=== PATIENT | male | born 1960 | race Caucasian/White ===

== ENCOUNTER → 2018-02-13 | Outpatient (CLI) | payer BC ==
[~2018-02-13] MED LIST: BENICAR HCT 401 EACH PO; BUPROPION HCL150 M2 PO; FOLIC ACID0.4 MG PO; MOBIC15 MG PO; OMEPRAZOLE40 M1 PO
[2018-02-13 10:09] LABS: HEMOGLOBIN 13.4 G/DL (12.5-16.6); MCH 31.9 PG (29.0-34.0); MCHC 35.3 G/DL (30.0-36.0); MCV 90.5 FL (86-99); PLATELET COUNT 256 K/uL (156-360); RBC DIS.WIDTH-CV 12.6 % (11.8-14.6); RBC DIS.WIDTH-SD 41.6 % (39-53); WHITE BLOOD COUNT 8.8 K/uL (4.1-10.2)
[2018-02-13 10:22] LABS: PTT 31.6 SEC (25-37)
== END | disposition home or self-care (01) ==
LOC: OPR 09:29 → EDSTATUS 10:00 → OPR 10:00
PROVIDERS: Internal Medicine Pulmonary Disease
DX: J84.10 Pulmonary fibrosis, unspecified (principal); J95.811 Postprocedural pneumothorax; I10 Essential (primary) hypertension; K21.9 Gastro-esophageal reflux disease without esophagitis; Z87.891 Personal history of nicotine dependence
CPT/HCPCS: 71045; 77012; 85027; 85610; 85730; 88305; 88313; J3010